=== PATIENT | male | born 1955 | race Caucasian/White ===

== ENCOUNTER → 2020-07-17 | Outpatient (CLI) | payer BC | END | disposition home or self-care (01) | LOC: STAR 08:00 → EDSTATUS 16:00 | PROVIDERS: ATTEND Urology | DX: U07.1 COVID-19 (principal); N20.0 Calculus of kidney | CPT/HCPCS: 87635 ==

== ENCOUNTER 2020-08-29 12:43 | Day surgery (SDC) | payer BC, OTHER ==
[~2020-08-29] VITALS: Ht 175.3 cm; Wt 87.1 kg
[2020-08-29 13:18] VITALS: BP 146/80
[2020-08-29] MEDS ORDERED: PLEASE ENTER HEIGHT AND WEIGHT MC SCH (13:30)
[2020-08-29] MEDS ORDERED: LACTATED RINGERS 1,000 ML IV SCH (13:30)
[2020-08-29] MEDS ORDERED: CHLORHEXIDINE 15 ML UDC MM ONE (13:30)
[2020-08-29] MEDS ORDERED: ENOX40SY4 SQ (13:51)
[2020-08-29] MEDS ORDERED: IRON PO (13:51)
[2020-08-29] MEDS ORDERED: TAMS-11 PO (13:51)
[2020-08-29] MEDS ORDERED: FENTANYL PF 250 MCG/5ML ONE (15:15)
[2020-08-29] MEDS ORDERED: ONDANSETRON 2MG/ML, 2ML ONE (15:49)
[2020-08-29] MEDS ORDERED: DEXAMETHASONE 4 MG/ML, 5ML ONE (15:49)
[2020-08-29] MEDS ORDERED: CEFAZOLIN 1,000 MG ONE (15:49)
[2020-08-29] MEDS ORDERED: LIDOCAINE-MPF 2% ,5ML ONE (15:49)
[2020-08-29] MEDS ORDERED: PROPOFOL 10 MG/ML, 20ML ONE (15:49)
[2020-08-29] MEDS ORDERED: LIDOCAINE GEL 2%, 5ML ONE (15:49)
[2020-08-29] MEDS ORDERED: OMNIPAQUE 350 MG/ML, 50 ML BOTTLE INJ ONE (16:28)
[2020-08-29] MEDS ORDERED: OPIUM/BELLADONNA SUPP.RECT 16.2-30 MG ONE (17:13)
[2020-08-29] MEDS ORDERED: FENTANYL PF 100 MCG/2ML ONE (17:13)
[2020-08-29] MEDS: FENTANYL PF 100 MCG/2ML IV PRN ×2 (17:20→17:25)
[2020-08-29] MEDS ORDERED: OXYcodone 5 MG/5 ML ORAL.SOL UDC ONE (17:28)
[2020-08-29] MEDS ORDERED: PROMETHAZINE 25 MG/ML, 1ML IVPush PRN (17:30)
[2020-08-29] MEDS ORDERED: MEPERIDINE/PF 25MG/0.5ML IVPush PRN (17:30)
[2020-08-29] MEDS ORDERED: LABETALOL 5MG/ML, 20ML IV PRN (17:30)
[2020-08-29] MEDS ORDERED: LORazepam 2 MG/ML, 1ML IVPush PRN (17:30)
[2020-08-29] MEDS ORDERED: OPIUM/BELLADONNA SUPP.RECT 16.2-30 MG PR PRN (17:30)
[2020-08-29] MEDS ORDERED: ACETAMINOPHEN 325 MG TABLET PO PRN (17:30)
[2020-08-29] MEDS ORDERED: hydrALAzine 20 MG/ML, 1ML IV PRN (17:30)
[2020-08-29] MEDS ORDERED: METHOCARBAMOL 1,000 MG in DEXTROSE 5% 100 ML IV PRN (17:30)
[2020-08-29] MEDS ORDERED: EPHEDRINE 50 MG/ML, 1ML IVPush PRN (17:30)
[2020-08-29] MEDS ORDERED: ONDANSETRON 2MG/ML, 2ML IVPush PRN (17:30)
[2020-08-29] MEDS ORDERED: OXYcodone 5 MG/5 ML ORAL.SOL UDC PO PRN (17:30)
[2020-08-29] MEDS ORDERED: HYDROmorphone 1 MG/ML, 1ML INJ ONE (17:33)
[2020-08-29] MEDS: HYDROmorphone 1 MG/ML, 1ML INJ IVPush PRN ×2 (17:34→17:44)
== END 2020-08-29 20:45 | disposition home or self-care (01) ==
LOC: OUT 12:43
PROVIDERS: ATTEND Urology
DX: N13.2 Hydronephrosis with renal and ureteral calculous obstruction (principal); N40.0 Benign prostatic hyperplasia without lower urinary tract symptoms; Z79.899 Other long term (current) drug therapy; Z79.2 Long term (current) use of antibiotics; Z72.89 Other problems related to lifestyle; Z98.890 Other specified postprocedural states; Z90.49 Acquired absence of other specified parts of digestive tract; Z85.038 Personal history of other malignant neoplasm of large intestine; Z82.49 Family history of ischemic heart disease and other diseases of the circulatory system
CPT/HCPCS: 52356; 74420; 82360; 88300; 93005; C1726; C1758; C1769; C2617; J0690; J1100; J1170; J2405; J2704; J3010; J7120; Q9967